=== PATIENT | female | born 1965 | race Caucasian/White ===

== ENCOUNTER 2020-05-17 11:13 | Inpatient (IN) | payer MEDICARE ==
[2020-05-17 14:23] LABS: #Eosinphils 0.1 10x3/uL (0.0-0.5); #Monocytes 1.1 10x3/uL (0.0-1.1); #Neutrophils 8.3 10x3/uL (1.5-8.4); %Basophils 0.2 % (0.0-2.0); %Eosinophils 0.7 % (0.0-6.0); %Neutrophils 74.7 % (40.0-75.0); Hemoglobin 10.2 g/dL (12.0-15.5); Mean Corpuscular HGB CONC 31.3 g/dL (32.0-36.0); Mean Corpuscular Hemoglobin 24.4 pg (27.0-33.0); Mean Platelet Volume 9.4 fl (7.4-10.4); Platelet Count 311 10x3/uL (150-450); RBC Distribution Width 17.9 % (11.5-14.5); Red Blood Cell (RBC) Count 4.18 10x6/uL (3.90-5.03); White Blood Cell (WBC) Count 11.1 10x3/uL (3.5-10.5)
[2020-05-17] MEDS ORDERED: VANCOMYCIN 1.75 GM/350 ML BAG 1.75 GM in Premix Bag 1 BAG IVPB SCH (14:30)
[2020-05-17] MEDS ORDERED: Morphine 4 MG/ML VIAL ONE (14:31)
[2020-05-17] MEDS ORDERED: Ondansetron PF 4 MG/2 ML Vial ONE (14:31)
[2020-05-17 14:33] LABS: ALT (SGPT) 17 U/L (8-55); AST (SGOT) 17 U/L (5-34); Albumin 4.1 g/dL (3.5-5.0); Alkaline Phosphatase 127 U/L (40-110); Anion Gap 16 mmol/L (10-20); BUN (Urea Nitrogen) 12 mg/dL (9.8-20.1); Bilirubin, Total 0.5 mg/dL (0.2-1.2); Calc. Creatinine Clearance 0 mL/min (70-130); Calcium 9.2 mg/dL (7.8-10.44); Carbon Dioxide 22 mmol/L (22-29); Chloride 104 mmol/L (98-107); Globulin 2.7 g/dL (2.4-3.5); Glucose 117 mg/dL (70-105); Potassium 3.9 mmol/L (3.5-5.1); Protein, Total 6.8 g/dL (6.0-8.3); Sodium 138 mmol/L (136-145)
[2020-05-17] MEDS ORDERED: Ondansetron PF 4 MG/2 ML Vial IVP PRN (16:37)
[2020-05-17] MEDS ORDERED: Senokot S 8.6-50 MG TAB PO PRN (16:37)
[2020-05-17] MEDS ORDERED: HYDROcodone/Acetaminophen 5/325 mg Tablet PO PRN (16:37)
[2020-05-17] MEDS ORDERED: Acetaminophen 325 MG TAB PO PRN (16:37)
[2020-05-17 17:11] LABS: Lactic Acid 1.3 mmol/L (0.5-2.2)
[2020-05-17] MEDS ORDERED: Cefepime 2 GM VIAL ONE (17:24)
[2020-05-17] MEDS ORDERED: ACYCLOVIR SODIUM IVPB SCH (17:30)
[2020-05-17] MEDS ORDERED: ADMIXTURE FEE IVPB SCH (17:30)
[2020-05-17] MEDS ORDERED: SODIUM CHLORIDE IVPB SCH (17:30)
[2020-05-17 17:52] LABS: HIV (1/2) Antibody/Antigen Non-Reactive (NonReactive); HIV 1/2 INDEX 0.08 S/CO (<1.00)
[2020-05-17] MEDS ORDERED: Sodium Chloride 0.9% 1,000 ML IV SCH (18:30)
[2020-05-17] MEDS: HYDROcodone/Acetaminophen 5/325 mg Tablet PO PRN (18:37)
[2020-05-17] MEDS: Nicotine 21 MG PATCH TD SCH (18:43)
[2020-05-17] MEDS ORDERED: Albuterol Sulfate 2.5 mg/3 ml Neb NEB PRN (19:00)
[2020-05-17] MEDS: Gabapentin 300 MG CAP PO SCH (20:22)
[2020-05-17 20:34] VITALS: BMI 24.1
[2020-05-18] MEDS: ACYCLOVIR SODIUM IVPB SCH ×3 (01:34→20:49)
[2020-05-18] MEDS: Zolpidem Tartrate 5 MG TAB PO PRN (01:34)
[2020-05-18] MEDS: ADMIXTURE FEE IVPB SCH ×3 (01:34→20:49)
[2020-05-18] MEDS: SODIUM CHLORIDE IVPB SCH ×3 (01:34→20:49)
[2020-05-18] MEDS: Vancomycin HCl 750 MG in Sodium Chloride 0.9% 250 ML 250 ML IVPB SCH ×2 (02:16→15:44)
[2020-05-18 05:46] LABS: #Eosinphils 0.2 10x3/uL (0.0-0.5); #Monocytes 0.7 10x3/uL (0.0-1.1); #Neutrophils 3.9 10x3/uL (1.5-8.4); %Basophils 0.2 % (0.0-2.0); %Eosinophils 3.9 % (0.0-6.0); %Lymphocytes 19.6 % (18.0-47.0); %Neutrophils 63.8 % (40.0-75.0); Hemoglobin 8.8 g/dL (12.0-15.5); Mean Corpuscular Hemoglobin 23.9 pg (27.0-33.0); Mean Corpuscular Volume 79.6 fl (81.6-98.3); Mean Platelet Volume 9.9 fl (7.4-10.4); Platelet Count 259 10x3/uL (150-450); RBC Distribution Width 18.1 % (11.5-14.5); Red Blood Cell (RBC) Count 3.68 10x6/uL (3.90-5.03); White Blood Cell (WBC) Count 6.1 10x3/uL (3.5-10.5)
[2020-05-18 05:58] LABS: Anion Gap 13 mmol/L (10-20); BUN (Urea Nitrogen) 9 mg/dL (9.8-20.1); Calc. Creatinine Clearance 100 mL/min (70-130); Calcium 8.7 mg/dL (7.8-10.44); Carbon Dioxide 22 mmol/L (22-29); Chloride 110 mmol/L (98-107); Glucose 85 mg/dL (70-105); Sodium 141 mmol/L (136-145)
[2020-05-18] MEDS: HYDROcodone/Acetaminophen 5/325 mg Tablet PO PRN ×4 (06:55→22:41)
[2020-05-18] MEDS ORDERED: Vancomycin 1 GM in Premix Bag 1 BAG IVPB SCH (07:00)
[2020-05-18] MEDS: Gabapentin 300 MG CAP PO SCH ×2 (08:21→20:42)
[2020-05-18] MEDS: Ziprasidone 20 MG CAP PO SCH (08:21)
[2020-05-18] MEDS: Enoxaparin Sodium 40 MG/0.4 ML SYRINGE SC SCH (08:22)
[2020-05-18] MEDS: cefTRIAXone\\ROCEPHIN 1 GM in Sodium Chloride 0.9% 100 ML IVPB SCH (08:22)
[2020-05-18 11:40] LABS: Hemoglobin A1c 5.5 % (4.0-6.0)
[2020-05-18 14:18] LABS: SARS-CoV-2 PCR by NAA Not Detected (NotDetected)
[2020-05-18] MEDS: Nicotine 21 MG PATCH TD SCH (17:46)
[2020-05-18] MEDS ORDERED: Prevnar 13-Val Conj/PF 0.5 ML SYRINGE IM ONE (21:00)
[2020-05-19] MEDS: Zolpidem Tartrate 5 MG TAB PO PRN (00:57)
[2020-05-19] MEDS: ACYCLOVIR SODIUM IVPB SCH ×3 (01:34→11:34)
[2020-05-19] MEDS: SODIUM CHLORIDE IVPB SCH ×3 (01:34→11:34)
[2020-05-19] MEDS: ADMIXTURE FEE IVPB SCH ×3 (01:34→11:34)
[2020-05-19 02:22] LABS: Vancomycin, Trough 4.7 ug/mL
[2020-05-19] MEDS ORDERED: Vancomycin 1.5 GRAM/300 ML BAG 1.5 GM in Premix Bag 1 BAG IVPB SCH (03:00)
[2020-05-19] MEDS: HYDROcodone/Acetaminophen 5/325 mg Tablet PO PRN ×3 (05:16→14:16)
[2020-05-19] MEDS: Gabapentin 300 MG CAP PO SCH (08:25)
[2020-05-19] MEDS: cefTRIAXone\\ROCEPHIN 1 GM in Sodium Chloride 0.9% 100 ML IVPB SCH (08:26)
[2020-05-19] MEDS: Ziprasidone 20 MG CAP PO SCH (08:26)
[2020-05-19] MEDS: Enoxaparin Sodium 40 MG/0.4 ML SYRINGE SC SCH (08:26)
[2020-05-19] MEDS ORDERED: Sodium Chloride 0.9% 100 ML ONE (11:13)
[2020-05-19 11:30] VITALS: BP 99/67; TEMP 97
[2020-05-19] MEDS ORDERED: VANCOMYCIN 1.25 GM/250 ML BAG 1.25 GM in Premix Bag 1 BAG IVPB SCH (15:00)
== END 2020-05-19 14:17 | disposition home or self-care (01) | DRG 872 ==
LOC: CSHERS 11:13 → CSHTELE 17:29
PROVIDERS: ADMIT Emergency Medicine; ATTEND Internal Medicine
DX: A41.89 Other specified sepsis (principal); B00.89 Other herpesviral infection; E87.2 Acidosis; Z20.822 Contact with and (suspected) exposure to COVID-19; F41.9 Anxiety disorder, unspecified; F32.9 Major depressive disorder, single episode, unspecified; J45.20 Mild intermittent asthma, uncomplicated; F17.210 Nicotine dependence, cigarettes, uncomplicated; H60.13 Cellulitis of external ear, bilateral; L03.032 Cellulitis of left toe; Z79.891 Long term (current) use of opiate analgesic; Z79.899 Other long term (current) drug therapy; Z88.0 Allergy status to penicillin; Z88.8 Allergy status to other drugs, medicaments and biological substances; Z91.018 Allergy to other foods; Z71.6 Tobacco abuse counseling; Z87.11 Personal history of peptic ulcer disease; B00.7 Disseminated herpesviral disease; Z98.0 Intestinal bypass and anastomosis status
CPT/HCPCS: 36415; 80048; 80053; 80202; 83036; 83605; 85025; 87040; 87389; 87635; 96365; 96366; 96367; 96375; J0133; J0692; J0696; J1650; J2270; J2405; J3370; J3490; J7050; U0003; U0005

== ENCOUNTER 2022-09-21 11:56 | Outpatient (CLI) | payer MEDICARE, OTHER | END 2022-09-21 11:57 | disposition home or self-care (01) | LOC: CSHMAMMO 11:56 | PROVIDERS: ATTEND Nurse Practitioner Family | DX: Z12.31 Encounter for screening mammogram for malignant neoplasm of breast (principal) | CPT/HCPCS: 77063; 77067 ==